=== PATIENT | female | born 1970 | race African-American/Black ===

== ENCOUNTER 2017-10-31 11:02 | Emergency (ER) | payer OTHER ==
[~2017-10-31] VITALS: Ht 172.7 cm; Wt 77.6 kg
[~2017-10-31 11:02] MED LIST: FLEXERIL OR; ULTRAM50 M1 PO
[2017-10-31] MEDS ORDERED: TORADOL PO (13:07)
[2017-10-31] MEDS ORDERED: FLEXERIL PO (13:07)
[2017-10-31 13:10] VITALS: BP 129/87
== END 2017-10-31 13:10 | disposition home or self-care (01) | DRG 563 ==
LOC: ED 11:02
DX: S39.012A Strain of muscle, fascia and tendon of lower back, initial encounter (principal); M06.9 Rheumatoid arthritis, unspecified; M79.7 Fibromyalgia; X50.0XXA Overexertion from strenuous movement or load, initial encounter; Y93.89 Activity, other specified; Y92.89 Other specified places as the place of occurrence of the external cause